=== PATIENT | male | born 1935 | race Caucasian/White ===

== ENCOUNTER 2021-09-30 17:35 | Observation (INO) ==
[2021-09-30] MEDS ORDERED: Ondansetron 4 MG/2 ML VIAL IVP PRN (19:53)
[2021-09-30] MEDS ORDERED: Naloxone 0.4 MG/ML INJ IVP PRN (19:53)
[2021-09-30] MEDS ORDERED: Acetaminophen 325 MG TABLET PO PRN (19:53)
[2021-09-30] MEDS ORDERED: *HR* Dextrose 50 % in Water (Syg) 50 ML SYRINGE IVP PRN (19:59)
[2021-09-30] MEDS ORDERED: Dextrose 4 GM Chewable Tablets PO PRN ×2 (19:59)
[2021-09-30] MEDS ORDERED: D5% in Water 1,000 ML IVC PRN (19:59)
[2021-09-30] MEDS ORDERED: Isovue-370 500 ML BOTTLE IVP ONE (22:20)
[2021-09-30] MEDS: 0.9 % Sodium Chloride 1,000 ML IVC SCH (22:20)
[2021-10-01 00:43] LABS: Adenovirus Not Detected (Not Detect); Bordetella Pertussis Not Detected (Not Detect); Chlamydophila pneumoniae Not Detected (Not Detect); Coronavirus 229E Not Detected (Not Detect); Coronavirus HKU1 Not Detected (Not Detect); Coronavirus NL63 Not Detected (Not Detect); Coronavirus OC43 Not Detected (Not Detect); Human Metapneumovirus Not Detected (Not Detect); Human Rhinovirus/Enterovirus Not Detected (Not Detect); Influenza A Subtype 2009 H1 Not Detected (Not Detect); Influenza B Not Detected (Not Detect); Mycoplasma pneumoniae Not Detected (Not Detect); Parainfluenza Virus 1 Not Detected (Not Detect); Parainfluenza Virus 2 Not Detected (Not Detect); Parainfluenza Virus 3 Not Detected (Not Detect); Parainfluenza Virus 4 Not Detected (Not Detect); Respiratory Syncytial Virus Not Detected (Not Detect); SARS-CoV-2 Not Detected (Not Detect)
[2021-10-01] MEDS ORDERED: 0.9 % Sodium Chloride 500 ML IVC PRN (00:44)
[2021-10-01] MEDS ORDERED: Ipratropium/Albuterol Neb 3 ML IH PRN (02:21)
[2021-10-01] MEDS: rOPINIRole 1 MG TABLET PO SCH ×2 (02:41→19:32)
[2021-10-01 03:20] LABS: Basophils # 0.1 K/mcL (0.0-0.2); Basophils % 0.5 %; Hematocrit 38.2 % (37.5-50.1); Hemoglobin 12.6 g/dL (12.9-16.9); Immature Granulocytes % 0.5 % (0-4); Lymphocytes # 0.6 K/mcL (0.6-4.6); Mean Corpuscular Volume 94.1 fL (83.0-100.0); Mean Platelet Volume 10.5 fL (9.4-12.4); Monocytes # 0.8 K/mcL (0.0-1.3); Monocytes % 6.8 %; Neutrophils # 10.1 K/mcL (1.6-8.9); Platelet Count 177 K/mcL (140-400); Red Blood Count 4.06 M/mcL (4.19-5.50); Red Cell Distribution Width 13.1 % (11.5-14.5); Segmented Neutrophils % 87.2 %; White Blood Count 11.6 K/mcL (4.3-11.1)
[2021-10-01 03:36] LABS: INR 1.3
[2021-10-01 03:48] LABS: Alanine Aminotransferase 70 Units/L (7-52); Albumin/Globulin Ratio 1.3 (1.1-2.2); Alkaline Phosphatase 55 Units/L (34-104); Aspartate Amino Transferase 64 Units/L (13-39); BUN/Creatinine Ratio 15 (6-26); Bilirubin,Direct 0.3 mg/dL (0.0-0.2); Bilirubin,Indirect 0.6 mg/dL (0.0-1.0); Bilirubin,Total 0.9 mg/dL (0.3-1.0); Blood Urea Nitrogen 18 mg/dL (8-23); C-Reactive Protein 79 mg/L (Less than 10); Calcium 8.1 mg/dL (8.6-10.3); Carbon Dioxide 22 mEq/L (23-29); Chloride 104 mEq/L (98-107); Globulin 2.3 g/dL (2.4-3.5); Glucose 130 mg/dL (70-105); Magnesium 1.5 mg/dL (1.6-2.6); Osmolality,Calculated 282 (280-300); Potassium 4.1 mEq/L (3.5-5.1); Sodium 134 mEq/L (136-145); Total Protein 5.3 g/dL (6.4-8.9); eGFR For African Americans > 60 (> 60); eGFR For Non-African Americans 59 (> 60)
[2021-10-01 03:55] LABS: Thyroid Stimulating Hormone 2.602 mcIU/mL (0.340-5.600)
[2021-10-01 04:02] LABS: Estimated Average Glucose 186 mg/dl; Hemoglobin A1C 8.1 %
[2021-10-01] MEDS: Insulin LISPRO 300 UNITS/3 ML VIAL SUBQ SCH ×3 (08:23→19:10)
[2021-10-01] MEDS: 0.9 % Sodium Chloride 1,000 ML IVC SCH ×2 (08:32→19:36)
[2021-10-01] MEDS: lisinopriL 5 MG TABLET PO SCH (08:33)
[2021-10-01] MEDS: Multivit/Ca/Min/Fe/FA 1 TAB TABLET PO SCH (08:33)
[2021-10-01] MEDS: *HR* Enoxaparin 40 MG/0.4 ML SYRINGE SQ SCH (08:34)
[2021-10-01] MEDS ORDERED: levoFLOXacin 750 MG/150 ML 750 MG/150 ML BAG IVPB SCH (09:00)
[2021-10-01] MEDS ORDERED: Perflutren Lipid Microsphere 1.3 ML in 0.9 % Sodium Chloride 8.7 ML IVP PRN (09:04)
[2021-10-01] MEDS ORDERED: Cefepime HCl 2,000 MG in 0.9 % Sodium Chloride 10 ML IVPB SCH (16:00)
[2021-10-01] MEDS: Vancomycin 1,500 MG/265 ML IV.SOLN IVPB SCH (17:40)
[2021-10-01] MEDS ORDERED: Melatonin 3 MG TABLET PO ONE (23:33)
[2021-10-02] MEDS: Cefepime HCl 2,000 MG in 0.9 % Sodium Chloride 10 ML IVP SCH ×2 (04:14→15:10)
[2021-10-02] MEDS: 0.9 % Sodium Chloride 1,000 ML IVC SCH ×2 (05:58→16:34)
[2021-10-02 06:44] LABS: Basophils # 0.1 K/mcL (0.0-0.2); Basophils % 0.9 %; Eosinophils # 0.3 K/mcL (0.0-0.6); Eosinophils % 4.9 %; Hematocrit 36.1 % (37.5-50.1); Hemoglobin 11.8 g/dL (12.9-16.9); Immature Granulocytes % 0.5 % (0-4); Lymphocytes # 1.1 K/mcL (0.6-4.6); Lymphocytes % 20.4 %; Mean Corpuscular HGB Conc 32.7 g/dL (31.6-35.5); Mean Corpuscular Volume 94.8 fL (83.0-100.0); Mean Platelet Volume 10.7 fL (9.4-12.4); Monocytes # 1.1 K/mcL (0.0-1.3); Monocytes % 19.7 %; Platelet Count 155 K/mcL (140-400); Red Blood Count 3.81 M/mcL (4.19-5.50); Red Cell Distribution Width 13.4 % (11.5-14.5); Segmented Neutrophils % 53.6 %
[2021-10-02 06:46] LABS: White Blood Count 5.5 K/mcL (4.3-11.1)
[2021-10-02 06:58] LABS: Platelet Estimate Normal (Normal)
[2021-10-02 07:04] LABS: Alanine Aminotransferase 60 Units/L (7-52); Albumin/Globulin Ratio 1.3 (1.1-2.2); Alkaline Phosphatase 58 Units/L (34-104); Aspartate Amino Transferase 55 Units/L (13-39); BUN/Creatinine Ratio 17 (6-26); Bilirubin,Total 0.5 mg/dL (0.3-1.0); Blood Urea Nitrogen 16 mg/dL (8-23); Calcium 8.5 mg/dL (8.6-10.3); Carbon Dioxide 23 mEq/L (23-29); Chloride 110 mEq/L (98-107); Globulin 2.3 g/dL (2.4-3.5); Glucose 151 mg/dL (70-105); Osmolality,Calculated 288 (280-300); Potassium 3.8 mEq/L (3.5-5.1); Sodium 137 mEq/L (136-145); Total Protein 5.3 g/dL (6.4-8.9); eGFR For African Americans > 60 (> 60); eGFR For Non-African Americans > 60 (> 60)
[2021-10-02] MEDS: Insulin LISPRO 300 UNITS/3 ML VIAL SUBQ SCH ×3 (08:28→17:27)
[2021-10-02] MEDS: Multivit/Ca/Min/Fe/FA 1 TAB TABLET PO SCH (09:06)
[2021-10-02] MEDS: lisinopriL 5 MG TABLET PO SCH (09:06)
[2021-10-02] MEDS: Aspirin Enteric Coated 81 MG Tablet PO SCH (09:06)
[2021-10-02] MEDS: *HR* Enoxaparin 40 MG/0.4 ML SYRINGE SQ SCH (09:07)
[2021-10-02] MEDS: rOPINIRole 1 MG TABLET PO SCH (15:18)
[2021-10-02] MEDS: Vancomycin 1,500 MG/265 ML IV.SOLN IVPB SCH (16:33)
[2021-10-03] MEDS: 0.9 % Sodium Chloride 1,000 ML IVC SCH (02:17)
[2021-10-03] MEDS: Cefepime HCl 2,000 MG in 0.9 % Sodium Chloride 10 ML IVP SCH (02:18)
[2021-10-03 04:31] VITALS: PULSE 60
[2021-10-03] MEDS: Insulin LISPRO 300 UNITS/3 ML VIAL SUBQ SCH (07:32)
[2021-10-03 07:46] VITALS: BP 133/82; TEMP 98.1; O2SAT 95
[2021-10-03] MEDS: Multivit/Ca/Min/Fe/FA 1 TAB TABLET PO SCH (09:03)
[2021-10-03] MEDS: Aspirin Enteric Coated 81 MG Tablet PO SCH (09:03)
[2021-10-03] MEDS: *HR* Enoxaparin 40 MG/0.4 ML SYRINGE SQ SCH (09:05)
[2021-10-03] MEDS: lisinopriL 5 MG TABLET PO SCH (09:05)
[2021-10-03 09:48] LABS: Basophils # 0.1 K/mcL (0.0-0.2); Basophils % 0.8 %; Eosinophils # 0.3 K/mcL (0.0-0.6); Eosinophils % 5.1 %; Hematocrit 37.8 % (37.5-50.1); Hemoglobin 12.3 g/dL (12.9-16.9); Immature Granulocytes % 0.3 % (0-4); Lymphocytes # 1.7 K/mcL (0.6-4.6); Mean Corpuscular HGB Conc 32.5 g/dL (31.6-35.5); Mean Corpuscular Hemoglobin 31.2 pg (28.0-33.3); Mean Corpuscular Volume 95.9 fL (83.0-100.0); Mean Platelet Volume 11.5 fL (9.4-12.4); Monocytes % 15.1 %; Neutrophils # 3.4 K/mcL (1.6-8.9); Platelet Count 174 K/mcL (140-400); Red Blood Count 3.94 M/mcL (4.19-5.50); Red Cell Distribution Width 13.3 % (11.5-14.5); Segmented Neutrophils % 52.7 %; White Blood Count 6.4 K/mcL (4.3-11.1)
[2021-10-05 11:02] LABS: Echinococcus antibody IgG 0.3 IV (0.0-0.8)
== END 2021-10-03 10:55 | disposition home or self-care (01) ==
LOC: 3ANU → SUATTDRO 19:33
PROVIDERS: ADMIT Internal Medicine; ATTEND Family Medicine